=== PATIENT | female | born 1960 | race African-American/Black ===

== ENCOUNTER 2016-12-19 08:42 | Inpatient (IN) | payer BC ==
[~2016-12-19] VITALS: Ht 165.1 cm; Wt 65.8 kg
[2016-12-19] MEDS ORDERED: ASPIRIN 81 MG TAB.CHEW PO ONE (09:00)
--- NOTE | 2016-12-19 09:04 | PHYS DOC ---
Adult General Chief Complaint Chief Complaint: CHEST PAIN-CARDIAC NATURE HPI HPI Patient is a 56 year old female who presents with chest pain for 1.5 hours. Reports left neck and shoulder pain and chest tightness accompanied by nausea and diaphoresis. Denies shortness of air. Reports previous episodes similiar to this and that she was seen at one month ago. Reports history of HTN, Lupus, and acid reflux. No ASA today Review of Systems Review of Systems Constitutional: Denies fever or chills Eyes: Denies change in visual acuity, redness, or eye pain HENT: Denies nasal congestion or sore throat Respiratory: Denies cough or shortness of breath Cardiovascular: Chest pain since 07 today GI: Denies abdominal pain, nausea, vomiting, bloody stools or diarrhea : Denies dysuria or hematuria Musculoskeletal: Denies back pain or joint pain Integument: Denies rash or skin lesions Neurologic: Denies headache, focal weakness or sensory changes Endocrine: Denies polyuria or polydipsia Current Medications Current Medications Current Medications Medications (Trade) Dose Ordered Sig/Linsey Start Time Stop Time Status Last Admin Dose Admin Aspirin (Children'S Aspirin) 324 mg 1X ONCE 12/19/16 09:00 12/19/16 10:40 DC 12/19/16 10:37 324 MG Allergies Allergies Allergies Coded Allergies Type Severity Reaction Last Updated Verified Sulfa (Sulfonamide Antibiotics) Allergy Intermediate Itching,Hives. 12/19/16 Yes Tetracyclines Allergy Intermediate Hives, Itching. 12/19/16 Yes erythromycin base Allergy Intermediate Itching, Rash. 12/19/16 Yes Physical Exam Physical Exam Constitutional: Well developed, well nourished, no acute distress, non-toxic appearance. HENT: Normocephalic, atraumatic, bilateral external ears normal, oropharynx moist, no oral exudates, nose normal. Eyes: PERRLA, EOMI, conjunctiva normal, no discharge. Neck: Normal range of motion, no tenderness, supple, no stridor. Cardiovascular:Heart rate regular rhythm, no murmur Lungs & Thorax: Bilateral breath sounds clear to auscultation Abdomen: Bowel sounds normal, soft, no tenderness, no masses, no pulsatile masses. Skin: Warm, dry, no erythema, no rash. Back: No tenderness, no CVA tenderness. Extremities: No tenderness, no cyanosis, no clubbing, ROM intact, no edema. Neurologic: Alert and oriented X 3, normal motor function, normal sensory function, no focal deficits noted. Psychologic: Affect normal, judgement normal, mood normal. Current Patient Data Vital Signs Vital Signs Date Time Temp Pulse Resp B/P Pulse Ox O2 Delivery O2 Flow Rate FiO2 12/19/16 11:11 74 14 155/95 96 12/19/16 10:11 Room Air 12/19/16 08:55 98.4 98.4 Lab Values Laboratory Tests Test 12/19/16 10:00 White Blood Count 3.7x10^3/uL (4.0-11.0) L Red Blood Count 4.39x10^6/uL (3.50-5.40) Hemoglobin 12.6g/dL (12.0-15.5) Hematocrit 38.0% (36.0-47.0) Mean Corpuscular Volume 87fL (79-100) Mean Corpuscular Hemoglobin 29pg (25-35) Mean Corpuscular Hemoglobin Concent 33g/dL (31-37) Red Cell Distribution Width 13.3% (11.5-14.5) Platelet Count 194x10^3/uL (140-400) Neutrophils (%) (Auto) 53% (31-73) Lymphocytes (%) (Auto) 31% (24-48) Monocytes (%) (Auto) 13% (0-9) H Eosinophils (%) (Auto) 2% (0-3) Basophils (%) (Auto) 1% (0-3) Neutrophils # (Auto) 1.9x10^3uL (1.8-7.7) Lymphocytes # (Auto) 1.1x10^3/uL (1.0-4.8) Monocytes # (Auto) 0.5x10^3/uL (0.0-1.1) Eosinophils # (Auto) 0.1x10^3/uL (0.0-0.7) Basophils # (Auto) 0.0x10^3/uL (0.0-0.2) Prothrombin Time 12.9SEC (11.7-14.0) Prothrombin Time INR 1.0 (0.8-1.1) D-Dimer (Gwendolyn) 0.45ug/mlFEU (0.00-0.50) Sodium Level 146mmol/L (136-145) H Potassium Level 3.8mmol/L (3.5-5.1) Chloride Level 108mmol/L (98-107) H Carbon Dioxide Level 27mmol/L (21-32) Anion Gap 11 (6-14) Blood Urea Nitrogen 11mg/dL (7-20) Creatinine 0.9mg/dL (0.6-1.0) Estimated GFR (Cockcroft-Gault) 77.8 Glucose Level 90mg/dL (70-99) Calcium Level 9.1mg/dL (8.5-10.1) Magnesium Level 1.7mg/dL (1.8-2.4) L Total Bilirubin 0.8mg/dL (0.2-1.0) Direct Bilirubin 0.1mg/dL (0.0-0.2) Aspartate Amino Transferase (AST) 22U/L (15-37) Alanine Aminotransferase (ALT) 19U/L (14-59) Alkaline Phosphatase 74U/L (46-116) Creatine Kinase 110U/L (26-192) Creatine Kinase MB (Mass) 0.7ng/mL (0.0-3.6) Creatine Kinase MB Relative Index 0.6% (0-4) Troponin I Quantitative < 0.017ng/mL (0.000-0.055) YU-Kyc-B-Type Natriuretic Peptide 83pg/mL (0-124) Total Protein 7.6g/dL (6.4-8.2) Albumin 3.8g/dL (3.4-5.0) Lipase 355U/L (73-393) Laboratory Tests 12/19/16 10:00 Laboratory Tests 12/19/16 10:00 EKG EKG [] Radiology/Procedures Radiology/Procedures [] Impressions: 1. Chest pain Course & Med Decision Making Course & Med Decision Making Pertinent Labs and Imaging studies reviewed. (See chart for details) CBC, CMP, Cardiac Enzymes, D-Dimer and Chest Xray reviewed and negative for acute findings. On both re-examinations, patient resting comfortably and on cell phone. Spoke with Dr. Lowe and agreed t keep patient for admission and further monitoring based on risk factors. Dragon Disclaimer Dragon Disclaimer This electronic medical record was generated, in whole or in part, using a voice recognition dictation system. Departure Departure Impression: Primary Impression: Chest pain Disposition: ADMITTED INPATIENT Admitting Physician: Lor Lowe Condition: STABLE YUAN SHARMA APRN Dec 19, 2016 09:04
--- NOTE | 2016-12-19 09:16 | EKG ---
[facility] [address] [place] [address] Test Date: 2016-12-19 Test Time: 08:52:22 Pat Name: ONEAL MARQUEZ Department: Room: Gender: F [employer]: 8 : 1960 Requested By: YUAN SHARMA Order Number: [id number] Reading MD: Александр Ching Measurements Intervals Campbell Rate: 82 P: 56 WY: 174 QRS: -1 QRSD: 72 T: 20 QT: 370 QTc: 435 Interpretive Statements SINUS RHYTHM LEFTWARD AXIS NO SPECIFIC ECG ABNORMALITIES RI6.01 No previous ECG available for comparison Electronically Signed On 01-03-2017 14:41:37 CONTROL CLERK SUBASSEMBLY by Александр Ching
--- NOTE | 2016-12-19 09:22 | RAD ---
INDICATION: Chest pain COMPARISON: None. FINDINGS: 2 views of chest obtained No focal airspace consolidation. Mediastinal contour is unremarkable. No gross osseous destructive lesion. IMPRESSION: No focal airspace consolidation or edema.
[2016-12-19 10:40] LABS: BASO % 1 % (0-3); EOS % 2 % (0-3); HEMOGLOBIN 12.6 g/dL (12.0-15.5); LYMPH # 1.1 x10^3/uL (1.0-4.8); LYMPH % 31 % (24-48); MEAN CORPUSCULAR HEMOGLOBIN 29 pg (25-35); MEAN CORPUSCULAR HGB CONC 33 g/dL (31-37); MEAN CORPUSCULAR VOLUME 87 fL (79-100); MONO % 13 % (0-9); NEUT % 53 % (31-73); PLATELET COUNT 194 x10^3/uL (140-400); RED BLOOD COUNT 4.39 x10^6/uL (3.50-5.40); RED CELL DISTRIBUTION WIDTH 13.3 % (11.5-14.5); WHITE BLOOD COUNT 3.7 x10^3/uL (4.0-11.0)
[2016-12-19] MEDS ORDERED: HYDR200T PO (10:43)
[2016-12-19] MEDS ORDERED: PANT40TA5 PO (10:43)
[2016-12-19] MEDS ORDERED: LISI-338 PO (10:43)
[2016-12-19 10:49] LABS: PROTHROMBIN TIME PATIENT 12.9 SEC (11.7-14.0)
[2016-12-19 10:52] LABS: CALCIUM 9.1 mg/dL (8.5-10.1); CREATININE 0.9 mg/dL (0.6-1.0); GFR 77.8; POTASSIUM 3.8 mmol/L (3.5-5.1)
[2016-12-19 11:01] LABS: ALBUMIN 3.8 g/dL (3.4-5.0); DIRECT BILIRUBIN 0.1 mg/dL (0.0-0.2); MAGNESIUM 1.7 mg/dL (1.8-2.4); TOTAL BILIRUBIN 0.8 mg/dL (0.2-1.0); TOTAL PROTEIN 7.6 g/dL (6.4-8.2)
[2016-12-19 11:08] LABS: CKMB INDEX 0.6 % (0-4); CKMB MASS 0.7 ng/mL (0.0-3.6)
[2016-12-19] MEDS ORDERED: NITROGLYCERIN SUBLINGUAL 0.4 MG BOTTLE OF 25. SL PRN (12:00)
[2016-12-19 12:58] LABS: NEGATIVE OBC STREP NEG; POSITIVE OBC STREP POS
--- NOTE | 2016-12-19 14:47 | ACF ---
Admission Forms Criteria CARDIOLOGY GRG Clinical Indications for Admission to Inpatient Care ( Place 'X' for any and all applicable criteria): Hospital admission is needed for appropriate care of the patient because of ANY ONE of the following (1): [ ] I. Hemodynamic instability as indicated by ALL of the following (1)(2)(3) (4)(5) [ ]a) Vital signs or other findings not as expected for chronic patient condition or baseline [ ]b) Instability indicated by ANY ONE of the following: [ ]i) Hypotension [ ]ii) Symptomatic Tachycardia unresponsive to treatment ( e.g., analgesia, fluids, sedation as indicated) [ ]iii) Inadequate perfusion indicated by ANY ONE of the following: [ ] 1) Lactic acidosis (> 2 mmol/L) [ ] 2) New abnormal capillary refill (> 3 seconds) [ ] 3) Reduced urine output [ ] 4) New altered mental status [ ]iv) Orthostatic vital sign changes unresponsive to treatment (e.g., fluids) [ ]v) IV inotropic or vasopressor medication required to maintain adequate blood pressure or perfusion [ ] II. Severe heart failure as indicated by ANY ONE of the following(17)(18) [ ]a) Respiratory distress [ ]b) Hypotension [ ]c) Anasarca (refractory to outpatient therapy) [ ]d) Cardiac arrhythmias of immediate concern [ ]e) Myocardial ischemia [ ] III. Cardiac arrhythmias or findings of immediate concern indicated by ANY ONE of the following (19)(20): [ ] a) Heart rhythms that are inherently dangerous or unstable indicated by ANY ONE of the following (21)(22)(23): [ ] i) Resuscitated ventricular fibrillation or cardiac arrest [ ] ii) Ventricular escape rhythm [ ] iii) Sustained ventricular tachycardia (30 seconds or more of ventricular rhythm at greater than 100 beats per minute) [ ] iv) Nonsustained ventricular tachycardia and ANY ONE of the following: [ ] 1) Suspected cardiac ischemia as cause or consequence of ventricular tachycardia [ ] 2) In setting of acute myocarditis [ ] b) Unstable cardiac conduction defects indicated by ANY ONE of the following(23)(24)(25) [ ] i) Type II second-degree atrioventricular block [ ]ii) Third-degree atrioventricular block [ ]iii) New-onset left bundle branch block with suspected myocardial ischemia [ ]c) Any heart rhythm and ANY ONE of the following (21)(22)(26)(27) (28) [ ] i) Continuous long-term ECG monitoring needed (e.g., initiation of drug requiring monitoring for more than 24 hours) [ ] ii) Patient has automatic implanted cardioverter defibrillator that is repeatedly firing, malfunctioning, or in need of immediate adjustment of settings beyond the scope of ambulatory or observation care [ ]d) Heart rhythms of concern due to ANY ONE of the following: [ ] i) Hypotension [ ] ii) Respiratory distress [ ] iii) Association with other significant symptoms (e.g., bradycardia with syncope or ongoing dizziness, supraventricular tachycardia with chest pain (14)(15)(17) [ ] IV. Monitoring for cardiac contusion beyond the scope of observation care needed [A](30)(31)(32) [ ] V. Surgical or device complication (e.g., valve replacement complication , pacemaker dysfunction) (35)(41)(44)(45)(46) [ ] . Inpatient palliative care needed. [B](49) Also use Inpatient Palliative Care Criteria [ ] VII. Nonbacterial thrombotic (marantic) endocarditis (36)(43)(47)(48) [X] VIII. Cardiology condition, symptom, or finding for which emergency and observation care has failed or are not considered appropriate. [ ] IX. Acute valvular disease requiring inpatient as indicated by ANY ONE of the following (41) [ ]a) Acute valvular regurgitation (42) [ ]b) Noninfectious valvulitis (43) [ ]c) Obstructive valve thrombosis [ ]d) Paravalvular leak [ ]e) Other significant valvular disorder remaining after emergency or observation level of care (as appropriate) [ ]X. Pericardial disease requiring inpatient treatment as indicated by ANY ONE of the following (33)(34)(35)(36)(37) [ ]a) Suspected tamponade (38)(39)(40) [ ]b) Hemopericardium [ ]c) Other significant pericardial disorder remaining after emergency or observation level of care (as appropriate) [ ] XI. Cardiac ischemia beyond scope of emergency and observation care. [ ] XII. Hypertension requiring inpatient treatment as indicated by ANY ONE of the following (6)(7)(8) [ ]a) SBP greater than 220 mm Hg or DBP greater than 120 mmHg despite treatment [ ]b) SBP greater than 140 mm Hg or DBP greater than 100 mm Hg with evidence of acute end organ damage as indicated by ANY ONE of the following [ ] i) Encephalopathy [ ] ii) Acute renal failure as indicated by new onset of ANY ONE of the following (9)(10)(11)(12)(13) [ ]1) 3-fold rise in serum creatinine from baseline [ ]2) Serum creatinine greater than 4 mg/dL ( 354 micromoles/L) with acute rise greater than 0.5 mg/dL (44.2 micromoles/L) [ ]3) Reduction of more than 75% in estimated glomerular filtration rate from baseline [ ]4) Estimated glomerular filtration rate less than 35 mL/min/1.73m2 (0.59 mL/sec/1.73m2) in child up to 18 years of age [ ]5) Cessation of urine output indicated by ALL of the following [ ]A. Adequate volume status [ ]B. Inadequate urine output as indicated by ANY ONE of the following [ ]a. Urine output less than 0.3 mL/kg/hr for 24 hours [ ]b. Anuria (urine output less than 0.1 mL/kg/hr) for 12 hours [ ] iii) Aortic dissection [ ] iv) Myocardial Ischemia [ ] v) Left ventricular heart failure [ ]vi) Retinal Hemorrhage [ ]vii) Other significant finding [ ]c) Hypertension in child requiring inpatient treatment as indicated by ALL of the following(14)(15)(16) [ ] i) Outpatient treatment not effective, not available, or not appropriate [ ]ii) SBP or DBP greater than 95th percentile for age [ ]iii) Evidence of acute end organ damage as indicated by ANY ONE of the following [ ]1) Altered mental status [ ]2) Acute renal failure as indicated by new onset of ANY ONE of the following(9)(10)(11)(12)(13) [ ]A. 3-fold rise in serum creatinine from baseline [ ]B. Serum creatinine greater than 4 mg/dL (354 micromoles/L) with acute rise greater than 0.5 mg/dL (44.2 micromoles/L) [ ]C. Reduction of more than 75% in estimated glomerular filtration rate from baseline [ ]D. Estimated glomerular filtration rate less than 35 mL/min/1.73m2 (0.59 mL/sec/1.73m2) in child up to 18 years of age [ ]E. Cessation of urine output indicated by ALL of the following [ ]a. Adequate volume status [ ]b. Inadequate urine output as indicated by ANY ONE of the following [ ]i) Urine output less than 0.3 mL/kg/hr for 24 hours [ ]ii) Anuria ( urine output less than 0.1 mL/kg/hr) for 12 hours [ ]3) Severe headache [ ]4) Visual disturbance [ ]5) Retinal hemorrhage [ ]6) Other significant finding [ ]XIII. Complications of transplanted heart indicated by ANY ONE of the following(61): [ ]a) Acute graft rejection requiring inpatient management (eg, intravenous immunosuppression)(62)(63) [ ]b) Acute graft heart failure indicated by ANY ONE of the following(64): [ ]i) Hemodynamic instability [ ]ii) Cardiac arrhythmias of immediate concern [ ]iii) Pulmonary edema that is very severe (eg, mechanical ventilation needed, imminent or likely, need for 100% oxygen to keep oxygen saturation above 90%) [ ]iv) Pulmonary edema that is persistent as indicated by ALL of the following: [ ]1) New need for oxygen therapy to keep oxygen saturation above 90% (or increased FiO2 need from baseline) [ ]2) Has not improved sufficiently with emergency department or observation care IV diuretics or other heart failure treatments[E] [ ]v) Altered mental status that is severe or persistent [ ]vi) Increased creatinine (new on laboratory test) with reduction of more than 50% in estimated glomerular filtration rate from baseline [ ]vii) Progressively (ongoing) rising creatinine (known from past laboratory test) with reduction of more than 25% in estimated glomerular filtration rate from baseline [ ]viii) Acute renal failure [ ]ix) Acute peripheral ischemia (eg, examination shows pulseless, cool, mottled, or cyanotic extremity) [ ]x) Pulmonary artery catheter monitoring needed [ ]xi) Other sign or symptom of heart failure requiring inpatient treatment (ie, too severe or not responsive to outpatient and observation care treatment) [ ]c) Infection requiring inpatient management (eg, Hemodynamic instability, need for intravenous antimicrobial treatment)(66)(67)(68)(69)(70) [ ]d) Cardiac allograft vasculopathy requiring inpatient management ( eg evidence of cardiac ischemia)(71) [ ]e) Other complication of transplanted heart (eg, stroke, severe pulmonary hypertension, severe valvular dysfunction) requiring inpatient management(72) The original [facility] content created by [facility] has been revised. The portions of the content which have been revised are identified through the use of italic text or in bold, and [facility] has neither reviewed nor approved the modified material. All other unmodified content is copyright [facility]. Please see references footnoted in the original [facility] edition 2016 Admission Criteria Met?: Yes GABY OWENS Dec 19, 2016 14:47
[2016-12-19 16:28] VITALS: BP 129/80
--- NOTE | 2016-12-19 17:06 | PDOC ---
Provider Note Provider Note H&P dictated # [id number] Steve URIBE MD Dec 19, 2016 17:06
[2016-12-19 17:12] LABS: NEGATIVE OBC MONO NEG; POSITIVE OBC MONO POS
[2016-12-19 19:00] VITALS: BP 115/69
[2016-12-19] MEDS ORDERED: ACETAMINOPHEN 325 MG TABLET. PO PRN (22:15)
[2016-12-19 22:56] VITALS: BP 99/58
--- NOTE | 2016-12-19 23:27 | HP ---
ADMIT DATE: 12/19/2016 ADMISSION HISTORY AND PHYSICAL ADMISSION DIAGNOSIS: Chest pain. HISTORY OF PRESENT ILLNESS: This is a 56-year-old female with a history of hypertension, lupus and GERD who developed chest pain as described in her ER note and is admitted for further evaluation. She states she was at for similar pain about a month ago. She was kept overnight. Her enzymes were negative, but no stress testing or additional testing was done at that time. She is not a smoker. She has also been hospitalized with chest pain and left-sided numbness in 2013. PAST MEDICAL HISTORY: As mentioned above, has hypertension, lupus, and GERD. PAST SURGICAL HISTORY: Include umbilical hernia repair in 1993, scar tissue removed and 1990, and x 2. FAMILY HISTORY: Her parents are . SOCIAL HISTORY: Never smoked. Does not abuse substances, has three children, not currently employed. ALLERGIES: She has allergies to sulfa, tetracycline, and erythromycin. HOME MEDICATIONS: Include lisinopril 5 mg daily, hydroxychloroquine 200 mg daily, aspirin low dose 81 mg daily, pantoprazole 20 mg daily and Flexeril p.r.n. She has also been on Zantac, magnesium and Claritin in the past, but no longer taking them. REVIEW OF SYSTEMS: CONSTITUTIONAL: No fever or chills. ENT: No changes in her hearing. No sinus congestion or cold symptoms. She has had a sore throat though. RESPIRATORY: No cough or trouble breathing. CARDIAC: Chest pain as above. BACK: Positive for back pain. EXTREMITIES: Negative for joint pain, swelling, edema, cyanosis. SKIN: Recently had MSSA infection. NEUROLOGY: She sees Dr. Jo. GYNECOLOGY: Pap smear is up to date and has been normal. PHYSICAL EXAMINATION: VITAL SIGNS: Stable. She is in no acute distress. HEENT: Unremarkable. Sclerae are nonicteric. Conjunctivae are clear. There is no sinus congestion. NECK: Supple, without adenopathy or mass. HEART: Regular rate and rhythm without murmur. LUNGS: Clear to auscultation. ABDOMEN: Soft, nondistended, nontender, no masses. EXTREMITIES: Without clubbing, cyanosis or edema. SKIN: Without any lesions. NEUROLOGIC: She appears intact without any focal findings. LABORATORY DATA: Her white count is low at 3.7, monocytes are high at 13%. Previous office labs show white count of 3.0 though, but normal monocytes. Cardiac enzymes are unremarkable. Chemistry panel is unremarkable. Chest x-ray is clear, without adenopathy noted. Cardiac silhouette appears normal. EKG is not currently viewable in the computer. ASSESSMENT: 1. Chest pain. This is her second episode in a month's time with rule out ACS protocol done at and then released about a month ago. 2. Lupus. 3. Gastroesophageal reflux disease. 4. Hypertension. 5. Recent methicillin-sensitive Staphylococcus aureus skin infection. PLAN: She is admitted. Since her myelocytes are high and her white count is low, we will check for mono. We will consult Cardiology. We will schedule a stress echo assuming her additional enzymes are negative as her breast tissue will likely interfere with the reading of MPI. W Serg URIBE MD DR: DONNA/marcy JOB#: [id number] / [id number]
[2016-12-20 03:00] VITALS: BP 103/73
[2016-12-20 07:00] VITALS: BP_SYST 110; BP_SYST 159; BP_DIAS 76; BP_DIAS 83
[2016-12-20] MEDS ORDERED: PANTOPRAZOLE 40 MG TABLET. PO SCH (07:30)
--- NOTE | 2016-12-20 08:41 | PDOC ---
PROGRESS NOTES Subjective Subjective Patient denies experiencing chest pain overnight or this morning. States that she has felt anxious due to her fear of the pain returning. She reports otherwise feeling well this morning. Objective Objective Vital Signs Date Time Temp Pulse Resp B/P Pulse Ox O2 Delivery O2 Flow Rate FiO2 12/20/16 03:00 97.5 78 20 103/73 97 Room Air 97.5 Intake and Output 12/20/16 07:00 Intake Total 240 ml Balance 240 ml Intake Oral 240 ml # Voids 3 Physical Exam General: Alert, Oriented X3, Cooperative, No acute distress Neuro: Normal speech Psych/Mental Status: Mental status NL Assessment Assessment Problems Medical Problems: (1) Chest pain Status: Acute Plan Plan of Care Medical Problems: (1) Chest pain-Await results of Stress Echo, continue to monitor for return of symptoms Status: Acute Comment Review of Relevant I have reviewed the following items yvan (where applicable) has been applied. Labs Laboratory Tests Test 12/19/16 10:00 12/19/16 11:56 12/19/16 17:40 12/19/16 23:32 White Blood Count 3.7x10^3/uL (4.0-11.0) Red Blood Count 4.39x10^6/uL (3.50-5.40) Hemoglobin 12.6g/dL (12.0-15.5) Hematocrit 38.0% (36.0-47.0) Mean Corpuscular Volume 87fL (79-100) Mean Corpuscular Hemoglobin 29pg (25-35) Mean Corpuscular Hemoglobin Concent 33g/dL (31-37) Red Cell Distribution Width 13.3% (11.5-14.5) Platelet Count 194x10^3/uL (140-400) Neutrophils (%) (Auto) 53% (31-73) Lymphocytes (%) (Auto) 31% (24-48) Monocytes (%) (Auto) 13% (0-9) Eosinophils (%) (Auto) 2% (0-3) Basophils (%) (Auto) 1% (0-3) Neutrophils # (Auto) 1.9x10^3uL (1.8-7.7) Lymphocytes # (Auto) 1.1x10^3/uL (1.0-4.8) Monocytes # (Auto) 0.5x10^3/uL (0.0-1.1) Eosinophils # (Auto) 0.1x10^3/uL (0.0-0.7) Basophils # (Auto) 0.0x10^3/uL (0.0-0.2) Prothrombin Time 12.9SEC (11.7-14.0) Prothromb Time International Ratio 1.0 (0.8-1.1) D-Dimer (Gwendolyn) 0.45ug/mlFEU (0.00-0.50) Sodium Level 146mmol/L (136-145) Potassium Level 3.8mmol/L (3.5-5.1) Chloride Level 108mmol/L (98-107) Carbon Dioxide Level 27mmol/L (21-32) Anion Gap 11 (6-14) Blood Urea Nitrogen 11mg/dL (7-20) Creatinine 0.9mg/dL (0.6-1.0) Estimated GFR (Cockcroft-Gault) 77.8 Glucose Level 90mg/dL (70-99) Calcium Level 9.1mg/dL (8.5-10.1) Magnesium Level 1.7mg/dL (1.8-2.4) Total Bilirubin 0.8mg/dL (0.2-1.0) Direct Bilirubin 0.1mg/dL (0.0-0.2) Aspartate Amino Transf (AST/SGOT) 22U/L (15-37) Alanine Aminotransferase (ALT/SGPT) 19U/L (14-59) Alkaline Phosphatase 74U/L (46-116) Creatine Kinase 110U/L (26-192) Creatine Kinase MB (Mass) 0.7ng/mL (0.0-3.6) Creatine Kinase MB Relative Index 0.6% (0-4) Troponin I Quantitative < 0.017ng/mL (0.000-0.055) < 0.017ng/mL (0.000-0.055) < 0.017ng/mL (0.000-0.055) BS-Xcx-K-Type Natriuretic Peptide 83pg/mL (0-124) Total Protein 7.6g/dL (6.4-8.2) Albumin 3.8g/dL (3.4-5.0) Lipase 355U/L (73-393) Heterophil Agglutinins Negative (NEGATIVE) Group A Streptococcus Rapid Negative (NEGATIVE) Laboratory Tests Test 12/19/16 10:00 12/19/16 11:56 12/19/16 17:40 12/19/16 23:32 White Blood Count 3.7x10^3/uL (4.0-11.0) Red Blood Count 4.39x10^6/uL (3.50-5.40) Hemoglobin 12.6g/dL (12.0-15.5) Hematocrit 38.0% (36.0-47.0) Mean Corpuscular Volume 87fL (79-100) Mean Corpuscular Hemoglobin 29pg (25-35) Mean Corpuscular Hemoglobin Concent 33g/dL (31-37) Red Cell Distribution Width 13.3% (11.5-14.5) Platelet Count 194x10^3/uL (140-400) Neutrophils (%) (Auto) 53% (31-73) Lymphocytes (%) (Auto) 31% (24-48) Monocytes (%) (Auto) 13% (0-9) Eosinophils (%) (Auto) 2% (0-3) Basophils (%) (Auto) 1% (0-3) Neutrophils # (Auto) 1.9x10^3uL (1.8-7.7) Lymphocytes # (Auto) 1.1x10^3/uL (1.0-4.8) Monocytes # (Auto) 0.5x10^3/uL (0.0-1.1) Eosinophils # (Auto) 0.1x10^3/uL (0.0-0.7) Basophils # (Auto) 0.0x10^3/uL (0.0-0.2) Prothrombin Time 12.9SEC (11.7-14.0) Prothromb Time International Ratio 1.0 (0.8-1.1) D-Dimer (Gwendolyn) 0.45ug/mlFEU (0.00-0.50) Sodium Level 146mmol/L (136-145) Potassium Level 3.8mmol/L (3.5-5.1) Chloride Level 108mmol/L (98-107) Carbon Dioxide Level 27mmol/L (21-32) Anion Gap 11 (6-14) Blood Urea Nitrogen 11mg/dL (7-20) Creatinine 0.9mg/dL (0.6-1.0) Estimated GFR (Cockcroft-Gault) 77.8 Glucose Level 90mg/dL (70-99) Calcium Level 9.1mg/dL (8.5-10.1) Magnesium Level 1.7mg/dL (1.8-2.4) Total Bilirubin 0.8mg/dL (0.2-1.0) Direct Bilirubin 0.1mg/dL (0.0-0.2) Aspartate Amino Transf (AST/SGOT) 22U/L (15-37) Alanine Aminotransferase (ALT/SGPT) 19U/L (14-59) Alkaline Phosphatase 74U/L (46-116) Creatine Kinase 110U/L (26-192) Creatine Kinase MB (Mass) 0.7ng/mL (0.0-3.6) Creatine Kinase MB Relative Index 0.6% (0-4) Troponin I Quantitative < 0.017ng/mL (0.000-0.055) < 0.017ng/mL (0.000-0.055) < 0.017ng/mL (0.000-0.055) NS-Ymf-T-Type Natriuretic Peptide 83pg/mL (0-124) Total Protein 7.6g/dL (6.4-8.2) Albumin 3.8g/dL (3.4-5.0) Lipase 355U/L (73-393) Heterophil Agglutinins Negative (NEGATIVE) Group A Streptococcus Rapid Negative (NEGATIVE) Medications Current Medications Aspirin (Children'S Aspirin) 324 mg 1X ONCE PO Last administered on 12/19/16t 10:37; Start 12/19/16 at 09:00; Stop 12/19/16 at 10:40; Status DC Nitroglycerin (Nitrostat) 0.4 mg PRN Q5MIN PRN SL CHEST PAIN; Start 12/19/16 at 12:00; Stop 12/20/16 at 11:59 Hydroxychloroquine Sulfate (Plaquenil) 200 mg DAILY PO ; Start 12/20/16 at 09:00 Lisinopril (Prinivil) 5 mg DAILY PO ; Start 12/20/16 at 09:00 Pantoprazole Sodium (Protonix) 40 mg DAILYAC PO ; Start 12/20/16 at 07:30 Acetaminophen (Tylenol) 650 mg PRN Q4HRS PRN PO MILD PAIN / TEMP Last administered on 12/19/16t 22:12; Start 12/19/16 at 22:15 Active Scripts Active Reported Pantoprazole Sodium 40 Mg Tablet.dr 40 Mg PO DAILY Plaquenil (Hydroxychloroquine Sulfate) 200 Mg Tablet 200 Mg PO DAILY Lisinopril 5 Mg Tablet 5 Mg PO DAILY Vitals/I & O Vital Sign - Last 24 Hours 12/19/16 12/19/16 12/19/16 12/19/16 08:55 10:11 10:40 11:11 Temp 98.4 98.4 Pulse 76 88 82 74 Resp 14 B/P 148/92 153/102 166/96 155/95 Pulse Ox 99 97 96 O2 Delivery Room Air Room Air 12/19/16 12/19/16 12/19/16 12/19/16 12:35 12:41 13:11 13:41 Pulse 68 66 68 Resp 23 10 16 B/P 137/81 137/86 140/91 127/81 Pulse Ox 97 95 97 O2 Delivery Room Air 12/19/16 12/19/16 12/19/16 12/19/16 14:11 14:41 15:11 15:41 Pulse 76 78 78 76 Resp B/P 123/80 127/80 120/77 122/78 Pulse Ox 98 97 96 97 O2 Delivery Room Air Room Air Room Air Room Air 12/19/16 12/19/16 12/19/16 12/20/16 16:28 19:00 22:56 03:00 Temp 98.0 97.9 97.7 97.5 98.0 97.9 97.7 97.5 Pulse 79 76 83 78 Resp B/P 129/80 115/69 99/58 103/73 Pulse Ox 100 95 96 97 O2 Delivery Room Air Room Air Room Air Room Air Intake and Output 12/19/16 12/19/16 12/20/16 15:00 23:00 07:00 Intake Total 240 ml 0 ml Balance 240 ml 0 ml Steve URIBE MD Dec 20, 2016 08:41
[2016-12-20] MEDS ORDERED: LISINOPRIL 5 MG TABLET. PO SCH (09:00)
[2016-12-20] MEDS ORDERED: HYDROXYCHLOROQUINE 200 MG TABLET PO SCH (09:00)
--- NOTE | 2016-12-20 10:27 | CARD ---
APPROVED REPORT INDICATION Chest Pain Reason : Patient complained of pain PROCEDURE The patient underwent an Exercise Stress Test using the Phillip Protocol. Blood pressure, heart rate, a nd EKG were monitored. An Echocardiogram was performed by communications tower technician in four stages in quad fashion. At peak stress four se lected images were obtained and placed side by side with resting images for comparison. STRESS ECHO FINDINGS The resting Echocardiogram showed normal left ventricular contractility with an estimated Ejection Fr action of about 70 %. Normal augmentation of myocardial wall segments using a 16 segment model. Test Type: Exercise Stress Nurse/Tech: SUZIE Healy RN Test Indications: Chest pain Cardiac History and Allergies: see EHR Medications: see EHR Medical History: see EHR Resting ECG: SR Resting Heart Rate: 90 bpm Resting Blood Pressure: 103/73mmHg Pretest Chest Pain: No chest pain Nurse/Tech Notes Lungs CTA, heart tones WNL Consent: The procedure was explained to the patient in lay terms. Informed consent was witnessed. Stephen eout was entered into [employer]. History and Stress Test performed by Shay Stress Symptoms No chest pain or symptoms. POST EXERCISE Reason for Termination: Reached target heart rate Target HR: Yes Max HR: 168 bpm 104% of Maximum Predicted HR: 162 bpm Exercise duration: 5:32 min:sec, 2 Stage Exercise capacity: 7METs Max Blood Pressure: 145/67mmHg Blood Pressure response to exercise: Normal blood pressure response during stress. Chest Pain: No. Arrhythmia: Yes. occasional PVC ST Change: No. INTERPRETATION Stress EKG Conclusion: Baseline EKG showed sinus rhythm. No ischemic changes at peak stress. No arr hythmias. <Conclusion> Treadmill exercise stress echocardiogram did not show any evidence of ischemia or infarct. Normal left ventricle systolic function with ejection fraction estimated at 70%. Patient had good activity tolerance. Low risk for cardiac events.
[2016-12-20 11:00] VITALS: BP_SYST 109; BP_SYST 134; BP_DIAS 67; BP_DIAS 76
--- NOTE | 2016-12-20 12:48 | PDOC ---
Provider Note Provider Note discharge dictated # [id number] Steve URIBE MD Dec 20, 2016 12:48
--- NOTE | 2016-12-20 23:56 | DS ---
DATE OF DISCHARGE: 12/20/2016 ADMISSION DIAGNOSIS: Chest pain. DISCHARGE DIAGNOSIS: Chest pain, non-cardiac, likely gastroesophageal reflux disease. HISTORY: This is a 56-year-old female who developed chest pain in the last an hour and a half prior to presentation in the Emergency Room. They went into her left neck and shoulder area and was accompanied with chest tightness, nausea and diaphoresis. She was hospitalized at a month ago for similar pain which was evaluated overnight and then she was released. She does not have a history of having any intervention or additional studies at that time. She did have a stress test about 2 years ago for chest pain. She has a history of hypertension, lupus, and acid reflux. She was admitted. Her enzymes have been negative and she was set up for stress echo this morning, which has been completed and is read by Cardiology as normal. She does not require any further inpatient care. She will be discharged home to continue her Plaquenil 200 mg daily, lisinopril 5 mg daily and pantoprazole 40 mg daily. She will follow up in the office within 2 weeks or sooner if her symptoms persist. We may need to pursue outpatient GI workup. Her labs showed a low white count, but that is not unusual for her. She did have increased monos and lymphocytes, so Monospot was negative. Strep test was negative. Cardiac enzymes were normal. Chemistries were unremarkable. Magnesium was slightly low at 1.7, but not thought to contribute to her symptoms. Her D-dimer was normal. Chest x-ray was unremarkable. Steve URIBE MD DR: DONNA/marcy JOB#: [id number] / [id number]
== END 2016-12-20 14:25 | disposition home or self-care (01) | DRG 392 ==
LOC: ER 08:42 → ED HOLD 11:42 → 5 NORTH 15:59
PROVIDERS: ADMIT Family Medicine; ATTEND Family Medicine
DX: K21.9 Gastro-esophageal reflux disease without esophagitis (principal); R07.89 Other chest pain; I10 Essential (primary) hypertension; Z88.2 Allergy status to sulfonamides; Z88.1 Allergy status to other antibiotic agents; Z79.82 Long term (current) use of aspirin; Z79.899 Other long term (current) drug therapy; Z86.14 Personal history of Methicillin resistant Staphylococcus aureus infection
CPT/HCPCS: 36415; 71020; 80048; 80076; 82553; 83690; 83735; 83880; 84484; 85027; 85379; 85610; 86308; 87070; 87880; 93005; 93017; 93350; 99285-25

== ENCOUNTER 2017-04-18 17:08 | Emergency (ER) | payer BC ==
[~2017-04-18 17:08] MED LIST: HYDR200T PO; LISI-338 PO; PANT40TA5 PO
[2017-04-18 17:19] VITALS: BP 136/86
[2017-04-18] MEDS ORDERED: IV NORMAL SALINE 1000ML BAG 1,000 ML IV ONE (18:00)
[2017-04-18] MEDS ORDERED: KETOROLAC TROMETHAMINE 30 MG/ML INJ. IV ONE (18:00)
[2017-04-18] MEDS ORDERED: PROCHLORPERAZINE 10 MG/2 ML VIAL. IV ONE (18:00)
[2017-04-18] MEDS ORDERED: fentaNYL PF VIAL 100 MCG/2 ML VIAL IV ONE (18:00)
--- NOTE | 2017-04-18 18:18 | ED.ADGEN ---
Past Medical History Past Medical History: Endometriosis, GERD, Hypertension, Other Additional Past Medical Histor: Lupus Past Surgical History: , Other Additional Past Surgical Histo: Umbilical hernia. Alcohol Use: Occasionally Drug Use: None Adult General Chief Complaint Chief Complaint: MULTIPLE COMPLAINTS [facility] HPI Patient is a 56 year old -[place] female with history of migraines, lupus, Sjogren's disease, hypertension, GERD who presents with typical headache , light sensitivity, neck pain, shoulder pain and stiffness for the past week. Patient has been taking daily aspirin with limited relief. Reports light sensitivity nausea but denies vomiting. No fever, chills, rash, sweats or other infectious symptoms. No illness or extremity weakness. Patient has not been evaluated by her PCP or specialist for her current symptoms. Review of Systems Review of Systems ROS as per HPI Current Medications Current Medications Current Medications Medications (Trade) Dose Ordered Sig/Linsey Start Time Stop Time Status Last Admin Dose Admin Alprazolam (Xanax) 0.25 mg 1X ONCE 04/18/17 19:45 04/18/17 19:45 DC 04/18/17 19:54 0.25 MG Diphenhydramine HCl (Benadryl) 25 mg 1X ONCE 04/18/17 19:30 04/18/17 19:35 DC 04/18/17 19:39 25 MG Fentanyl Citrate (Fentanyl 2ml Vial) 75 mcg 1X ONCE 04/18/17 18:00 04/18/17 18:02 DC 04/18/17 18:15 75 MCG Ketorolac Tromethamine (Toradol) 30 mg 1X ONCE 04/18/17 18:00 04/18/17 18:02 DC 04/18/17 18:13 30 MG Prochlorperazine Edisylate (Compazine) 10 mg 1X ONCE 04/18/17 18:00 04/18/17 18:02 DC 04/18/17 18:11 10 MG Sodium Chloride 1,000 ml @ 1,000 mls/hr 1X ONCE 04/18/17 18:00 04/18/17 18:59 DC 04/18/17 18:11 1,000 MLS/HR Allergies Allergies Allergies Coded Allergies Type Severity Reaction Last Updated Verified Sulfa (Sulfonamide Antibiotics) Allergy Intermediate Itching,Hives. 12/19/16 Yes Tetracyclines Allergy Intermediate Hives, Itching. 12/19/16 Yes erythromycin base Allergy Intermediate Itching, Rash. 12/19/16 Yes Physical Exam Physical Exam Constitutional: Well developed, well nourished, moderate discomfort secondary to pain. HENT: Normocephalic, atraumatic, bilateral external ears normal. Eyes: PERRLA, EOMI, conjunctiva normal. Neck: Normal range of motion, no tenderness, supple, no midline tenderness. Diffuse neck and upper thoracic tenderness and trapezius muscle sprain. Cardiovascular:Heart rate regular rhythm. Lungs & Thorax: Bilateral breath sounds clear to auscultation. Abdomen: Bowel sounds normal, soft, no tenderness. Skin: Warm, dry. Back: No midline tenderness. Neurologic: Alert and oriented X 3, normal motor function, normal sensory function, no focal deficits noted. Current Patient Data Vital Signs Vital Signs Date Time Temp Pulse Resp B/P (MAP) Pulse Ox O2 Delivery O2 Flow Rate FiO2 04/18/17 17:19 98.3 76 16 136/86 (103) 99 Room Air 98.3 Lab Values Laboratory Tests Test 04/18/17 17:21 04/18/17 18:00 Urine Color Yellow Urine Clarity Clear Urine pH 6.0 Urine Specific Nixa <=1.005 Urine Protein Negative mg/dL (NEG-TRACE) Urine Glucose (UA) Negative mg/dL (NEG) Urine Ketones (Stick) Negative mg/dL (NEG) Urine Blood Negative (NEG) Urine Nitrite Negative (NEG) Urine Bilirubin Negative (NEG) Urine Urobilinogen Dipstick 0.2 mg/dL (0.2 mg/dL) Urine Leukocyte Esterase Trace (NEG) Urine RBC 0 /HPF (0-2) Urine WBC Occ /HPF (0-4) Urine Squamous Epithelial Cells Occ /LPF Urine Bacteria 0 /HPF (0-FEW) White Blood Count 3.9 x10^3/uL (4.0-11.0) L Red Blood Count 4.05 x10^6/uL (3.50-5.40) Hemoglobin 11.9 g/dL (12.0-15.5) L Hematocrit 35.8 % (36.0-47.0) L Mean Corpuscular Volume 88 fL (79-100) Mean Corpuscular Hemoglobin 30 pg (25-35) Mean Corpuscular Hemoglobin Concent 33 g/dL (31-37) Red Cell Distribution Width 13.5 % (11.5-14.5) Platelet Count 180 x10^3/uL (140-400) Neutrophils (%) (Auto) 46 % (31-73) Lymphocytes (%) (Auto) 38 % (24-48) Monocytes (%) (Auto) 12 % (0-9) H Eosinophils (%) (Auto) 3 % (0-3) Basophils (%) (Auto) 2 % (0-3) Neutrophils # (Auto) 1.8 x10^3uL (1.8-7.7) Lymphocytes # (Auto) 1.5 x10^3/uL (1.0-4.8) Monocytes # (Auto) 0.5 x10^3/uL (0.0-1.1) Eosinophils # (Auto) 0.1 x10^3/uL (0.0-0.7) Basophils # (Auto) 0.1 x10^3/uL (0.0-0.2) Sodium Level 142 mmol/L (136-145) Potassium Level 4.0 mmol/L (3.5-5.1) Chloride Level 105 mmol/L (98-107) Carbon Dioxide Level 30 mmol/L (21-32) Anion Gap 7 (6-14) Blood Urea Nitrogen 11 mg/dL (7-20) Creatinine 0.9 mg/dL (0.6-1.0) Estimated GFR (Cockcroft-Gault) 77.8 BUN/Creatinine Ratio 12 (6-20) Glucose Level 91 mg/dL (70-99) Calcium Level 8.7 mg/dL (8.5-10.1) Total Bilirubin 0.6 mg/dL (0.2-1.0) Aspartate Amino Transferase (AST) 22 U/L (15-37) Alanine Aminotransferase (ALT) 17 U/L (14-59) Alkaline Phosphatase 56 U/L (46-116) Troponin I Quantitative < 0.017 ng/mL (0.000-0.055) Total Protein 7.1 g/dL (6.4-8.2) Albumin 3.7 g/dL (3.4-5.0) Albumin/Globulin Ratio 1.1 (1.0-1.7) Laboratory Tests 04/18/17 18:00 Laboratory Tests 04/18/17 18:00 EKG EKG [] Radiology/Procedures Radiology/Procedures CXR: NAD[] Course & Med Decision Making Course & Med Decision Making Pertinent Labs and Imaging studies reviewed. (See chart for details) [Multiple complaints, which aremusculoskeletal mediated. Patient given pain medication and taking anxiety and muscle relaxers and the ER with symptomatic improvement. Patient lab work, chest x-ray assuring. Discharge instructions and follow-up with PCP and to continue supportive care.] Dragon Disclaimer Dragon Disclaimer This electronic medical record was generated, in whole or in part, using a voice recognition dictation system. FELI JENNINGS DO Apr 18, 2017 18:18
[2017-04-18 19:22] LABS: BASO # 0.1 x10^3/uL (0.0-0.2); BASO % 2 % (0-3); EOS % 3 % (0-3); HEMATOCRIT 35.8 % (36.0-47.0); HEMOGLOBIN 11.9 g/dL (12.0-15.5); LYMPH # 1.5 x10^3/uL (1.0-4.8); LYMPH % 38 % (24-48); MEAN CORPUSCULAR HEMOGLOBIN 30 pg (25-35); MEAN CORPUSCULAR HGB CONC 33 g/dL (31-37); MEAN CORPUSCULAR VOLUME 88 fL (79-100); MONO % 12 % (0-9); NEUT % 46 % (31-73); PLATELET COUNT 180 x10^3/uL (140-400); RED BLOOD COUNT 4.05 x10^6/uL (3.50-5.40); RED CELL DISTRIBUTION WIDTH 13.5 % (11.5-14.5); WHITE BLOOD COUNT 3.9 x10^3/uL (4.0-11.0)
[2017-04-18 19:24] LABS: BILIRUBIN,URINE NEGATIVE (NEG); GLUCOSE,URINE NEGATIVE (NEG); NITRITE,URINE NEGATIVE (NEG); PROTEIN,URINE NEGATIVE (NEG-TRACE); UROBILINOGEN,URINE 0.2 mg/dL (0.2 mg/dL)
[2017-04-18] MEDS ORDERED: diphenhydrAMINE 50 MG/ML VIAL IVP ONE (19:30)
[2017-04-18 19:32] LABS: BACTERIA,URINE 0 /HPF (0-FEW); RBC,URINE 0 /HPF (0-2); SQUAMOUS EPITHELIAL CELL,UR OCC /LPF; WBC,URINE OCC /HPF (0-4)
[2017-04-18 19:33] LABS: CALCIUM 8.7 mg/dL (8.5-10.1); CREATININE 0.9 mg/dL (0.6-1.0); GFR 77.8
[2017-04-18 19:39] LABS: ALBUMIN 3.7 g/dL (3.4-5.0); ALBUMIN/GLOBULIN RATIO 1.1 (1.0-1.7); TOTAL BILIRUBIN 0.6 mg/dL (0.2-1.0); TOTAL PROTEIN 7.1 g/dL (6.4-8.2)
[2017-04-18] MEDS ORDERED: ALPRAZolam 0.25 MG TABLET PO ONE (19:45)
--- NOTE | 2017-04-18 20:03 | RAD ---
PQRS Compliance Statement: One or more of the following individualized dose reduction techniques were utilized for this examination: 1. Automated exposure control 2. Adjustment of the mA and/or kV according to patient size 3. Use of iterative reconstruction technique CT HEAD WITHOUT CONTRAST History: severe headache today, Comparison: None. Procedure: Axial images are obtained of the head from the skull base through the vertex without IV contrast. Findings: The ventricles and sulci are normal for the patient's age. No mass-effect, midline shift, hemorrhage, extra-axial fluid collection, or obvious acute infarction is identified. Basilar cisterns are patent. Bone windows demonstrate no acute calvarial abnormality. The visualized paranasal sinuses are clear. Mastoid air cells are well aerated. IMPRESSION: No acute intracranial abnormality. Electronically signed by: Guilherme Galindo MD (04/18/2017 8:00 PM)
--- NOTE | 2017-04-19 07:41 | RAD ---
Portable chest, 04/18/2017: History: Chest pain Comparison is made to a study from 12/19/2016. The heart size and pulmonary vascularity are normal. There are calcified right paratracheal lymph nodes. No pulmonary infiltrate is seen. There is no evidence of pleural fluid. IMPRESSION: No acute cardiopulmonary abnormality is detected.
== END 2017-04-18 20:40 | disposition home or self-care (01) ==
LOC: ER 17:08
DX: S43.499A Other sprain of unspecified shoulder joint, initial encounter (principal); M53.82 Other specified dorsopathies, cervical region; I10 Essential (primary) hypertension; K21.9 Gastro-esophageal reflux disease without esophagitis; M32.9 Systemic lupus erythematosus, unspecified; Z98.890 Other specified postprocedural states; Z88.2 Allergy status to sulfonamides; Z88.1 Allergy status to other antibiotic agents; Z88.8 Allergy status to other drugs, medicaments and biological substances; X58.XXXA Exposure to other specified factors, initial encounter; Y93.89 Activity, other specified; Y99.8 Other external cause status; Y92.89 Other specified places as the place of occurrence of the external cause
CPT/HCPCS: 36415; 70450; 71010; 80053; 81001; 84484; 85027; 87086; 96361; 96374; 96375; 99285; J0780; J1200; J1885; J3010; J7030